=== PATIENT | female | born 1940 | race Caucasian/White ===

== ENCOUNTER 2017-01-18 03:55 | Emergency (ER) | payer MEDICARE, SELFPAY ==
[~2017-01-18 03:55] MED LIST: CARAFATE1 GM PO; CHILDRENS CHEWA81 MG PO; CRESTOR10 MG PO; LEVAQUIN500 MG PO; MECLIZINE HCL25 MG PO; PANTOPRAZOLE SO40 MG PO; REGLAN10 MG PO; SYNTHROID75 MCG PO; ZESTRIL20 MG PO
== END 2017-01-18 05:43 ==
LOC: ER 03:55
DX: I10 Essential (primary) hypertension (principal); Z88.0 Allergy status to penicillin; Z88.1 Allergy status to other antibiotic agents; Z79.899 Other long term (current) drug therapy
CPT/HCPCS: 87400; 99283

== ENCOUNTER 2017-03-25 18:40 | Emergency (ER) | payer MEDICARE, OTHER ==
[2017-03-25 20:10] LABS: BASO # 0.1 10_X3_uL (0.0-0.1); BASO % 0.7 % (0.1-1.2); EOS # 0.6 10_X3_uL (0.0-0.4); EOS % 4.5 % (0.7-5.8); GRAN # 8.4 10_X3_uL (1.6-6.1); GRAN % 67.1 % (34.0-71.1); HEMATOCRIT 39.2 % (34-45); LYMPH # 2.6 10_X3_uL (1.2-3.7); LYMPH % 21.1 % (19.3-51.7); MEAN CORPUSCULAR HEMOGLOBIN 28.9 pg (27.0-33.0); MEAN CORPUSCULAR HGB CONC 33.2 g/dL (32.0-36.0); MEAN CORPUSCULAR VOLUME 87.1 fL (79-95); MEAN PLATELET VOLUME 10.3 fl (7.5-11.5); MONO # 0.8 10_X3_uL (0.2-0.9); MONO % 6.6 % (4.7-12.5); PLATELET COUNT 290 x10_3/uL (182-369); WHITE BLOOD COUNT 12.5 x10_3/uL (4.0-10.0)
[2017-03-25 20:18] LABS: URINE BACTERIA TRACE (NONE SEEN); URINE BILIRUBIN NEGATIVE (NEGATIVE); URINE BLOOD TRACE (NEGATIVE); URINE GLUCOSE (UA) NORMAL (NORMAL); URINE KETONE NEGATIVE (NEGATIVE); URINE LEUKOCYTE ESTERASE NEGATIVE (NEGATIVE); URINE NITRATE NEGATIVE (NEGATIVE); URINE PROTEIN TRACE (NEGATIVE); URINE SQUAMOUS EPITHELIAL CELL 0-10 /[HPF] (NONE SEEN); URINE WBC 0-5 /[HPF] (0-5); UROBILINOGEN NORMAL mg/dL (<1.0)
[2017-03-25 20:19] LABS: URINE AMORPHOUS SEDIMENT 1+
[2017-03-25 20:24] LABS: ALBUMIN 4.5 gm/dL (3.4-5.0); BILIRUBIN,TOTAL 0.31 mg/dL (0.0-1.0); CALCIUM 8.8 mg/dL (8.7-10.7); POTASSIUM 4.1 mmol/L (3.5-5.1); TOTAL PROTEIN 7.6 gm/dL (6.4-8.2)
== END 2017-03-25 21:16 | disposition home or self-care (01) ==
LOC: ER 18:40
PROVIDERS: Internal Medicine
DX: M54.6 Pain in thoracic spine (principal); R06.02 Shortness of breath; I10 Essential (primary) hypertension; K21.9 Gastro-esophageal reflux disease without esophagitis; E07.9 Disorder of thyroid, unspecified; Z88.0 Allergy status to penicillin; Z88.2 Allergy status to sulfonamides; Z88.1 Allergy status to other antibiotic agents; Z79.899 Other long term (current) drug therapy
CPT/HCPCS: 36415; 71020; 80053; 81001; 82550; 82553; 83690; 85025; 93005; 99070; 99284; 99285-25

== ENCOUNTER 2017-03-31 15:03 | Emergency (ER) | payer MEDICARE, SELFPAY | END 2017-03-31 18:52 | disposition home or self-care (01) | LOC: ER 15:03 | DX: L08.9 Local infection of the skin and subcutaneous tissue, unspecified (principal); M79.671 Pain in right foot; Z79.899 Other long term (current) drug therapy; Z88.0 Allergy status to penicillin; Z88.2 Allergy status to sulfonamides; Z88.1 Allergy status to other antibiotic agents | CPT/HCPCS: 73630; 99283 ==